=== PATIENT | male | born 1985 | race Caucasian/White ===

== ENCOUNTER → 2022-03-07 | Outpatient (CLI) | payer OTHER ==
[~2022-03-07] MED LIST: ALBU90OI INH; BUPR150T2 PO; CEFD300 PO; CEFU50SU PO; CEPH500 PO; CLARITIN10 MG PO; DIAZ5 PO; DIPH50 PO; FAMO20 PO; FAMO40 PO; HYDACE5 PO; HYDACE5325 PO; HYDMOR4 PO; KETO10 PO; LEVFLO500 PO; LORA2 PO; NAPR250 PO; NEOPOLHCSU LEFTEAR; OMEP10ER PO; ONDA4ODT MM; OXYACE5T PO; Omeprazole20 M1 PO; PRED20 PO; PROM25 PO; RXONDA4ODT MM; RXOXYACE PO; RXSULTRIDS PO; Ranitidine HCl300 MG PO; SULTRIDS PO; TAMS.4ER PO; TRAM50 PO
[2022-03-09 03:37] LABS: CHLAMYDIA TRACHOMATIS, NAA Negative (Negative)
== END | disposition home or self-care (01) ==
LOC: LAB 11:36 → LAB SHORT 11:36
PROVIDERS: Physician Assistant
DX: R30.0 Dysuria (principal)
CPT/HCPCS: 87491; 87591

== ENCOUNTER → 2022-12-30 | Outpatient (CLI) | payer OTHER ==
[2022-12-30 13:15] LABS: Adenovirus F 40/41 Not Detected (NOT DETECT); Astrovirus Not Detected (NOT DETECT); Campylobacter Sp Not Detected (NOT DETECT); Cryptosporidium Not Detected (NOT DETECT); Cyclospora Cayetanensis Not Detected (NOT DETECT); E. Coli O157 Not Detected (NOT DETECT); Entamoeba Histolytica Not Detected (NOT DETECT); Enteroaggregative E. coli-EAEC Not Detected (NOT DETECT); Enteropathogenic E. coli-EPEC Not Detected (NOT DETECT); Enterotoxigenic E. coli-ETEC Not Detected (NOT DETECT); Giardia Lamblia Not Detected (NOT DETECT); Norovirus GI/GII Not Detected (NOT DETECT); Plesiomonas Shigelloides Not Detected (NOT DETECT); Rotavirus A Not Detected (NOT DETECT); Salmonella Sp Not Detected (NOT DETECT); Sapovirus Not Detected (NOT DETECT); Shiga Toxin-prod E. coli-STEC Not Detected (NOT DETECT); Shigella/Enteroin E. coli-EIEC Not Detected (NOT DETECT); Vibrio Cholerae Not Detected (NOT DETECT); Vibrio Sp Not Detected (NOT DETECT); Yersinia Enterocolitica Not Detected (NOT DETECT)
== END | disposition home or self-care (01) ==
LOC: LAB SHORT 07:30 → LAB 07:30 → LAB FUT 12-26 09:55
PROVIDERS: Physician Assistant
DX: Z13.29 Encounter for screening for other suspected endocrine disorder (principal); K59.1 Functional diarrhea
CPT/HCPCS: 87507

== ENCOUNTER 2023-06-02 02:10 | Day surgery (SDC) | payer OTHER ==
[2023-06-02 09:15] VITALS: BP 136/98
[2023-06-02] MEDS ORDERED: Potassium Chlo20 ME1 PO (09:33)
== END 2023-06-02 10:35 | disposition home or self-care (01) ==
LOC: ATC 02:10
DX: R00.2 Palpitations (principal); R42 Dizziness and giddiness; J44.9 Chronic obstructive pulmonary disease, unspecified; F10.10 Alcohol abuse, uncomplicated; Z91.030 Bee allergy status
CPT/HCPCS: 80400; 82533; 96374; J0834